=== PATIENT | female | born 1960 | race Caucasian/White ===

== ENCOUNTER 2020-08-06 06:40 | Day surgery (SDC) | payer MEDICAID ==
[2020-08-06] MEDS ORDERED: Sodium Chloride 0.9% 1,000 ML IV SCH (07:00)
[2020-08-06] MEDS ORDERED: Midazolam 1 MG/ML 2 ML SDV ONE (07:36)
[2020-08-06] MEDS ORDERED: Propofol 200 MG/20 ML SDV ONE (07:36)
[2020-08-06] MEDS ORDERED: fentaNYL 100 MCG/2 ML SDV ONE (07:36)
--- NOTE | 2020-08-06 11:34 | OR ---
DATE OF PROCEDURE: 08/06/2020 SURGEON: Anoop Connell MD PROCEDURE: Colonoscopy. FINDINGS: 1. Cecal polyp, approximately 8 mm, completely removed using hot snare wire device. 2. Sigmoid colon polyp, approximately 5 mm, completely removed using cold biopsy forceps. 3. Diverticulosis, mild, limited to sigmoid colon without evidence of diverticulitis or bleeding. PREOPERATIVE DIAGNOSIS: Family history of colorectal cancer. POSTOPERATIVE DIAGNOSIS: Family history of colorectal cancer. RISKS: Risks, benefits, alternatives, and limitations including, but not limited to infection, bleeding, and perforation were explained to the patient, who wished to proceed. PROCEDURE IN DETAIL: The patient was placed in a left lateral decubitus position. Digital rectal exam was performed without abnormality. Scope was introduced and advanced atraumatically to the ileocecal valve. A photo was taken of this. Scope was brought back through the ascending, transverse, descending colon, and retroflexed. No evidence of old or new blood. The aforementioned polyps were identified and completely removed. No abnormal bleeding was noted after removal. No colitis. No evidence of other abnormality. Diverticulosis is described as mild, limited to sigmoid colon, without evidence of bleeding or inflammation or infection. No abnormalities on retroflexion. Greater than 8 minutes was spent removing the scope. The patient tolerated the procedure well. Anoop Connell MD /[id number]
== END 2020-08-06 09:40 | disposition home or self-care (01) ==
LOC: JP.SDS 06:40
PROVIDERS: ATTEND Surgery
DX: Z12.11 Encounter for screening for malignant neoplasm of colon (principal); D12.0 Benign neoplasm of cecum; K57.30 Diverticulosis of large intestine without perforation or abscess without bleeding; I10 Essential (primary) hypertension; F17.210 Nicotine dependence, cigarettes, uncomplicated; K21.9 Gastro-esophageal reflux disease without esophagitis; G89.29 Other chronic pain; Z80.0 Family history of malignant neoplasm of digestive organs
CPT/HCPCS: 45380; 45385; J2250; J2704; J3010; J7030; 88305

== ENCOUNTER 2025-09-05 06:53 | Day surgery (SDC) | payer MEDICAID ==
[2025-09-05] MEDS ORDERED: fentaNYL 50 MCG/ML SDV ONE (07:23)
[2025-09-05] MEDS ORDERED: Propofol 200 MG/20 ML SDV ONE (07:23)
[2025-09-05] MEDS ORDERED: Midazolam 1 MG/ML 2 ML SDV ONE (07:23)
[2025-09-05] MEDS: Lactated Ringers 1,000 ML IV SCH (07:39)
== END 2025-09-05 10:05 | disposition home or self-care (01) ==
LOC: JP.SDS 06:53
PROVIDERS: ATTEND Family Medicine
DX: Z12.11 Encounter for screening for malignant neoplasm of colon (principal); K63.5 Polyp of colon; K64.8 Other hemorrhoids; K57.30 Diverticulosis of large intestine without perforation or abscess without bleeding; Z80.0 Family history of malignant neoplasm of digestive organs
CPT/HCPCS: 00811; 45380; J2250; J2704; J3010; J7120